=== PATIENT | female | born 2000 | race African-American/Black ===

== ENCOUNTER 2020-11-26 18:13 | Emergency (ER) | payer OTHER ==
[2020-11-26] MEDS ORDERED: FLUCONAZOLE 100 MG TABLET PO STA (20:55)
--- NOTE | 2020-11-26 21:03 | ED Physician Documentation ---
History of Present Illness - Stated complaint Stated Complaint: FEMALE - Chief complaint Chief Complaint: General - History obtained from History obtained from: Patient - History of Present Illness Timing: Today Pain level max: 0 Pain level now: 0 - Additonal information Additional information: Patient is a 20-year-old female who presents to the emergency department complaining of vaginal itching and a rash. She started this yesterday. She denies any discharge. She states she did have intercourse with a new partner on November 18. No STD exposure that she is aware of. She is on Nexplanon. No pain. No fevers. Denies any possibility of . Nothing makes it better or worse Review of Systems Constitutional: denies: Fever, Chills GI: denies: Vomiting, Diarrhea : denies: Dysuria, Frequency, Hesitancy, Now EGA Skin: denies: Rash Musculoskeletal: denies: Neck pain, Back pain Neurologic: denies: Headache PD PAST MEDICAL HISTORY - Past Medical History Past Medical History: No - Allergies Allergies/Adverse Reactions: Allergies Allergy/AdvReac Type Severity Reaction Status Date / Time Penicillins Allergy Rash Verified 11/26/20 18:25 - Social History Does the pt smoke?: No Smoking Status: Never smoker PD ED PE NORMAL - Vitals Vital signs reviewed: Yes - General General: Alert and oriented X 3, No acute distress - HEENT HEENT: Moist mucous membranes - Neck Neck: Supple, no meningeal sign - Cardiac Cardiac: RRR - Respiratory Respiratory: No respiratory distress, Clear bilaterally - Abdomen Abdomen: Soft, Non tender, Non distended - Female Female : Pit Hand present (DEIDRA Frank), Other (No visible rash. There is small white discharge. Patient declines an internal pelvic exam. External exam done.) - Derm Derm: Warm and dry - Extremities Extremities: No edema - Neuro Neuro: Alert and oriented X 3 - Psych Psych: Normal mood, Normal affect Results - Vitals Vitals: Vital Signs - 24 hr 11/26/20 11/26/20 18:19 21:07 Temperature 36.6 C 36.1 C L Heart Rate 93 65 Respiratory 18 16 Rate Blood Pressure 148/83 H 117/59 L O2 Saturation 100 100 Oxygen O2 Source Room air PD MEDICAL DECISION MAKING - ED course Complexity details: considered differential, d/w patient ED course: Patient self swabbed. Appears to be consistent with a yeast infection. Given Diflucan. Bacterial vaginitis panel as well as gonorrhea and Chlamydia were sent. These results were not available at the time of discharge as lab was having issues with her machine. Treated presumptively. We will follow up on the results of the bacterial vaginitis panel and call her if changes to her medication are needed. Patient counseled regarding signs and symptoms for which I believe and urgent re-evaluation would be necessary. Patient with good understanding of and agreement to plan and is comfortable going home at this time This document was made in part using voice recognition software. While efforts are made to proofread this document, sound alike and grammatical errors may occur. Departure - Departure Disposition: 01 Home, Self Care Clinical Impression: Yeast vaginitis Condition: Good Instructions: ED Vaginal Infec Fungal Hansa Follow-Up: your,doctor in 1 week [Other] Comments: Follow up with your doctor as needed for further care. We have treated you presumptively for a yeast infection tonight. We will call you if your lab results require a different treatment. Discharge Date/Time: 11/26/20 21:10
[2020-11-26 21:07] VITALS: BP 117/59
[2020-11-26 22:31] LABS: BACTERIAL VAGINOSIS DNA POSITIVE (NEGATIVE); CANDIDA GLABRATA DNA NEGATIVE (NEGATIVE); CANDIDA GROUP DNA POSITIVE (NEGATIVE); CANDIDA KRUSEI DNA NEGATIVE (NEGATIVE); TRICHOMONAS VAGINALIS DNA NEGATIVE (NEGATIVE)
[2020-11-26 23:23] LABS: CHLAMYDIA TRACHOMATIS DNA NEGATIVE (NEGATIVE); NEISSERIA GONORRHOEAE DNA NEGATIVE (NEGATIVE); TRICHOMONAS VAGINALIS DNA NEGATIVE (NEGATIVE)
--- NOTE | 2020-11-27 13:32 | ED Physician Documentation ---
ED Addendum - Addendum Addendum: 11/27/20 13:30 Results were reviewed and patient was positive for bacterial vaginitis and a yeast infection. Treated with Diflucan already. Contacted the patient and we will send a prescription for Flagyl to [facility] in [place] where she will pick this up. Departure - Departure Disposition: 01 Home, Self Care Clinical Impression: Yeast vaginitis, Bacterial vaginitis Condition: Good Instructions: ED Vaginal Infec Fungal Hansa Follow-Up: your,doctor in 1 week [Other] Prescriptions: metroNIDAZOLE [Flagyl] 500 mg PO BID #14 tablet Comments: Follow up with your doctor as needed for further care. We have treated you presumptively for a yeast infection tonight. We will call you if your lab results require a different treatment. Discharge Date/Time: 11/26/20 21:10
== END 2020-11-26 21:10 | disposition home or self-care (01) ==
LOC: ED 18:13
DX: B37.3 Candidiasis of vulva and vagina (principal)
CPT/HCPCS: 87481; 87491; 87591; 87661; 87801; 99283; 99284; A9270